=== PATIENT | female | born 1955 | race Caucasian/White ===

== ENCOUNTER 2017-07-07 14:29 | Emergency (ER) | payer MEDICARE ==
[~2017-07-07] VITALS: Ht 165.1 cm; Wt 83.9 kg
[2017-07-07] MEDS ORDERED: LISI20 PO (15:15)
[2017-07-07] MEDS ORDERED: Ondansetron Odt8 MG PO (15:15)
[2017-07-07] MEDS ORDERED: AMLO5 PO (15:16)
[2017-07-07] MEDS ORDERED: Zanaflex4 M1 PO (15:16)
[2017-07-07] MEDS ORDERED: Cymbalta60 MG PO (15:17)
[2017-07-07] MEDS ORDERED: MECL12.5 PO (15:17)
[2017-07-07] MEDS ORDERED: PANT40 PO (15:17)
[2017-07-07] MEDS ORDERED: NIAC250ER PO (15:18)
[2017-07-07] MEDS ORDERED: Robaxin500 MG PO (15:34)
[2017-07-07] MEDS ORDERED: METPRE4DP PO (15:34)
== END 2017-07-07 15:40 | disposition home or self-care (01) ==
LOC: ER 14:29
DX: M54.17 Radiculopathy, lumbosacral region (principal); Z88.6 Allergy status to analgesic agent; I10 Essential (primary) hypertension; F17.200 Nicotine dependence, unspecified, uncomplicated; Z88.8 Allergy status to other drugs, medicaments and biological substances; Z88.5 Allergy status to narcotic agent; Z88.1 Allergy status to other antibiotic agents; Z79.899 Other long term (current) drug therapy
CPT/HCPCS: 99283